=== PATIENT | female | born 1985 | race Caucasian/White ===

== ENCOUNTER 2017-04-16 16:22 | Outpatient (CLI) | payer BC ==
--- NOTE | 2017-04-16 17:02 | Non Stress Test Report ---
Non Stress Test Datetime Report Generated by CPN: 04/16/2017 17:01 DEMOGRAPHIC EGA NST: 35.5 INDICATION Indication for Study: Ordered by Provider Indication for Study (NST) Other: GDM MONITORING Monitor Explained: Monitor Explained; Test Explained; Patient Verbalized Understanding Time on Monitor: 04/16/2017 16:39 Time off Monitor: 04/16/2017 16:59 NST Duration: 20 NST INTERVENTIONS NST Interventions: PO Hydration; Reposition Patient Physician Notified NST: Lyle BABY A: [id number] BABY A Movement : Present Contraction Frequency : 0 FHR Baseline : 140 Accelerations : 15X15 Decelerations : None Variability : Moderate 6-25bpm NST Review: Meets Criteria for Reactive NST NST Review and Verified By : Gianna Camp RNC NST Results: Reactive NST REPORT Report Trigger: Send Report
== END 2017-04-16 17:02 | disposition home or self-care (01) ==
LOC: LC 16:22
PROVIDERS: ATTEND Student in an Organized Health Care Education/Training Program
PROC: 4A1HXCZ Monitoring of Products of Conception, Cardiac Rate, External Approach (ICD-10-PCS; principal; 2017-04-16)
DX: O24.419 Gestational diabetes mellitus in pregnancy, unspecified control (principal); Z3A.35 35 weeks gestation of pregnancy
CPT/HCPCS: 59025

== ENCOUNTER 2017-05-10 06:10 | Inpatient (IN) | payer BC, OTHER ==
[2017-05-08 12:26] LABS: ABSOLUTE LYMPHOCYTES (AUTO) 1.8 10^3/uL (0.5-4.7); ABSOLUTE MONOCYTES (AUTO) 0.5 10^3/uL (0.1-1.4); ABSOLUTE NEUT (AUTO) 9.3 10^3/uL (1.7-8.2); BASOPHILS % (AUTO) 0.2 % (0-2); EOSINOPHILS % (AUTO) 0.3 % (0-6); HEMATOCRIT 38.2 % (36.0-47.0); HEMOGLOBIN 12.6 g/dL (12.0-15.5); LYMPHOCYTES % (AUTO) 15.2 % (13-45); MEAN CORPUSCULAR HEMOGLOBIN 28.2 pg (27.0-33.4); MEAN CORPUSCULAR VOLUME 85 fl (80-97); PLATELET COUNT 256 10^3/uL (150-450); RED BLOOD COUNT 4.48 10^6/uL (3.72-5.28); RED CELL DISTRIBUTION WIDTH 15.8 % (11.5-14.0); SEGMENTED NEUTROPHILS % (AUTO) 80.3 % (42-78); TOTAL CELLS COUNTED % (AUTO) 100 %; WHITE BLOOD COUNT 11.5 10^3/uL (4.0-10.5)
[2017-05-08 12:29] LABS: APPEARANCE,URINE SLIGHTLY-CLOUDY; BILIRUBIN,URINE NEGATIVE (NEGATIVE); COLOR,URINE YELLOW; GLUCOSE, URINE NEGATIVE (NEGATIVE); KETONES,URINE NEGATIVE (NEGATIVE); LEUKOCYTE ESTERASE,URINE MODERATE (NEGATIVE); NITRITE,URINE NEGATIVE (NEGATIVE); PROTEIN,URINE NEGATIVE (NEGATIVE); URINE SPECIFIC GRAVITY 1.009; UROBILINOGEN,URINE NEGATIVE mg/dL (<2.0)
[2017-05-08 12:51] LABS: URINE AMPHETAMINES SCREEN NEGATIVE; URINE BARBITURATES SCREEN NEGATIVE; URINE BENZODIAZEPINES SCREEN NEGATIVE; URINE COCAINE SCREEN NEGATIVE; URINE MARIJUANA (THC) SCREEN NEGATIVE; URINE METHADONE SCREEN NEGATIVE; URINE PHENCYCLIDINE SCREEN NEGATIVE
[~2017-05-10 06:10] MED LIST: LACTATED RINGERS 1000 ML IV PRN; LIDOCAINE 0.5% INJ-PF (5 MG/ML) 50 ML SDV SUBCUT PRN
[2017-05-10] MEDS: RINGERS SOLUTION,LACTATED 1,000 ML IV SCH ×2 (08:00→22:12)
[2017-05-10] MEDS ORDERED: FENTANYL CITRATE INJ/PF 100 MCG/2 ML AMPUL IV PRN (08:03)
[2017-05-10] MEDS ORDERED: OXYTOCIN/NORMAL SALINE 20 UNIT/1,000 ML RTUINJ INJ PRN (08:06)
[2017-05-10] MEDS ORDERED: CEFAZOLIN 1 GM/D5W RTU 1 GM/50 ML RTUPB IV PRN (08:16)
[2017-05-10] MEDS ORDERED: OXYCODONE-ACETAMINOPHEN 5-325 MG TABLET PO PRN ×3 (08:30→10:24)
[2017-05-10] MEDS ORDERED: PROMETHAZINE HCL INJ 25 MG/1 ML VIAL IM PRN (08:30)
[2017-05-10] MEDS ORDERED: SIMETHICONE 80 MG TAB.CHEW PO PRN (08:30)
[2017-05-10] MEDS ORDERED: MEASLES,MUMPS&RUBELLA VACC/PF 0.5 ML VIAL SUBCUT PRN (08:30)
[2017-05-10] MEDS ORDERED: ACETAMINOPHEN 325 MG TABLET PO PRN (08:30)
[2017-05-10] MEDS ORDERED: DIPH/PERTUSS(ACELL)/TETANUS VAC/PF 0.5 ML SYR (>=10YO) IM PRN (08:30)
[2017-05-10] MEDS: PRENATAL VITAMIN W DHA CAPSULE PO SCH (10:04)
[2017-05-10] MEDS: DOCUSATE SODIUM 100 MG CAPSULE PO SCH ×2 (10:04→17:36)
[2017-05-10] MEDS ORDERED: PROMETHAZINE HCL INJ 25 MG/1 ML VIAL IV PRN ×2 (10:24)
[2017-05-10] MEDS ORDERED: DIPHENHYDRAMINE HCL 50 MG/ML VIAL IV PRN (10:24)
[2017-05-10] MEDS ORDERED: MEPERIDINE HCL/PF INJ 25 MG/1 ML DISP.SYRIN IV PRN (10:24)
[2017-05-10] MEDS ORDERED: KETOROLAC TROMETHAMINE INJ/PF 30 MG/1 ML SDV ONE (11:38)
[2017-05-10] MEDS ORDERED: ACETAMINOPHEN 100 ML IV ONE (11:38)
[2017-05-10] MEDS ORDERED: OXYTOCIN/NORMAL SALINE 20 UNIT/1,000 ML RTUINJ ONE (11:38)
[2017-05-10] MEDS: ACETAMINOPHEN 100 ML IV SCH ×2 (11:53→22:12)
[2017-05-10] MEDS ORDERED: FENTANYL CITRATE INJ/PF 100 MCG/2 ML AMPUL ONE (12:40)
--- NOTE | 2017-05-10 12:49 | OPERATIVE REPORT E ---
Operative Report NAME: AYE YANEZ : 1985 AGE: 32Y DATE OF SURGERY: 05/10/2017 ROOM: 221 PREOPERATIVE DIAGNOSES: 1. IUP at 39 weeks and 0 days. 2. Previous x2. POSTOPERATIVE DIAGNOSES: 1. IUP at 39 weeks and 0 days. 2. Previous x2. SURGEON: ROSELIA ROBBINS M.D. ANESTHESIA: Dr. Ricks with a spinal. STAFF WEAPONS OFFICER: Gabrielle Mercedes, Belt Molder Substation Engineer FINDINGS: A male infant in transverse lie with Apgars of 9 and 9. COMPLICATIONS: None. ESTIMATED BLOOD LOSS: 600 mL. SPECIMENS REMOVED: None. PROCEDURE: A low transverse hysterotomy section repeat. PROCEDURE IN DETAIL: The patient was taken to the operating room and prepared and draped in a normal sterile fashion in the supine position with a leftward tilt. A transverse skin incision was made with the scalpel and carried through to the underlying layer of fascia. With the same scalpel, the fascia was excised in the midline and extended laterally with Reyes's. The fascia was then dissected from the rectus muscle sharply with Reyes's and the peritoneal cavity was entered bluntly. With good visualization of the bladder and the uterus, the bladder blade was inserted. The hysterotomy was nicked with the scalpel and extended laterally with surgeon finger fracture. The infant was then delivered atraumatically. The nose and mouth were suctioned with a suction bulb and the cord was clamped and cut and the infant was handed off to awaiting top precipitator operator. Cord blood was collected. Placenta was removed manually. Uterus was exteriorized, cleared of clots and debris, and the hysterotomy was closed with 0 Monocryl in a running, locked fashion and a second layer of the same suture was used to imbricate to ensure hemostasis. The uterus was then returned to the abdomen and the peritoneal cavity was cleared of clots and debris. The rectus muscle and peritoneum were reapproximated with a mattress stitch of 2-0 Chromic. The fascia was closed with 0 Vicryl. The subcutaneous layer was closed with plain catgut and the skin was closed with 4-0 Vicryl. The patient tolerated the procedure well. Sponge, lap, and needle counts correct x2, and the patient was taken to recovery in stable condition. DICTATING PHYSICIAN: ROSELIA ROBBINS M.D. [id number] PHY#: [id number] ID: [id number] JOB#: [id number] ACCT: [id number] cc:ROSELIA ROBBINS M.D. > [facility]
[2017-05-10] MEDS ORDERED: KETOROLAC TROMETHAMINE INJ/PF 30 MG/1 ML SDV IV SCH (14:00)
[2017-05-10] MEDS ORDERED: RINGERS SOLUTION,LACTATED 2,000 ML IV ONE (14:00)
[2017-05-10] MEDS: OXYCODONE-ACETAMINOPHEN 5-325 MG TABLET PO PRN (14:19)
[2017-05-10] MEDS: KETOROLAC TROMETHAMINE INJ/PF 30 MG/1 ML SDV IV SCH (20:19)
[2017-05-11] MEDS: OXYCODONE-ACETAMINOPHEN 5-325 MG TABLET PO PRN ×4 (02:08→21:48)
[2017-05-11] MEDS: KETOROLAC TROMETHAMINE INJ/PF 30 MG/1 ML SDV IV SCH ×2 (04:14→11:24)
[2017-05-11 07:00] LABS: HEMATOCRIT 33.9 % (36.0-47.0); HEMOGLOBIN 11.3 g/dL (12.0-15.5); MEAN CORPUSCULAR HEMOGLOBIN 28.5 pg (27.0-33.4); MEAN CORPUSCULAR HGB CONC 33.5 g/dL (32.0-36.0); MEAN CORPUSCULAR VOLUME 85 fl (80-97); PLATELET COUNT 211 10^3/uL (150-450); RED BLOOD COUNT 3.98 10^6/uL (3.72-5.28); RED CELL DISTRIBUTION WIDTH 15.8 % (11.5-14.0); WHITE BLOOD COUNT 9.8 10^3/uL (4.0-10.5)
[2017-05-11] MEDS: DOCUSATE SODIUM 100 MG CAPSULE PO SCH ×2 (09:37→17:11)
[2017-05-11] MEDS: PRENATAL VITAMIN W DHA CAPSULE PO SCH (09:37)
--- NOTE | 2017-05-11 11:00 | PDOC PROGRESS REPORT ---
Subjective-OB Progress Note for:: 05/11/17 Subjective: day X1 s/p r c/s Doing well, passing gas, ambulating, tolerating diet, lochia is stable, voiding without difficulty. Bonding with baby well. Physical Exam (OB) Vital Signs: Temp Pulse Resp BP Pulse Ox 98.1 F 77 16 105/65 98 05/11/17 08:04 05/11/17 08:04 05/11/17 08:04 05/11/17 08:04 05/11/17 08:04 Intake & Output 05/10/17 05/11/17 05/12/17 06:59 06:59 06:59 Intake Total 1650 Output Total 2650 Balance -1000 Weight 107.501 kg - Dressing Removed: No Incision: Well Approximated Closure Type: op site - Lochia Lochia Amount: Small 10-25 ml Lochia Color: Rubra/Red - Abdomen Description: Tender, Soft, Round Hernia Present: No Fundal Description: Firm, Midline Fundal Height: u/u - u/2 Objective-Diagnostic Laboratory: 05/11/17 06:33 05/11/17 06:33 WBC 9.8 RBC 3.98 Hgb 11.3 L Hct 33.9 L MCV 85 MCH 28.5 MCHC 33.5 RDW 15.8 H Plt Count 211 Assessment and Plan(PN) - Assessment and Plan (1) delivery delivered Is this a current diagnosis for this admission?: Yes Plan: routine post op care - Time Spent with Patient Time with patient: Less than 15 minutes Critical Time spent with patient: Less than 15 minutes Medications reviewed and adjusted accordingly: Yes - Disposition Anticipated Discharge: Home Within: within 24 hours
[2017-05-11] MEDS: IBUPROFEN 800 MG TABLET PO SCH ×3 (12:22→23:51)
[2017-05-12] MEDS: IBUPROFEN 800 MG TABLET PO SCH (05:18)
--- NOTE | 2017-05-12 08:51 | PDOC DISCHARGE SUMMARY ---
Final Diagnosis Discharge Date: 05/12/17 - Final Diagnosis (1) delivery delivered Is this a current diagnosis for this admission?: Yes Discharge Data - Discharge Medication Prescriptions: Oxycodone HCl/Acetaminophen [Percocet 5-325 mg Tablet] 2 tab PO Q4HP PRN #60 tablet PRN Reason: Docusate Sodium [Colace 100 mg Capsule] 100 mg PO BID #60 capsule Ibuprofen [Motrin 800 mg Tablet] 800 mg PO Q6 #60 tablet Home Medications: Prenat 115/Iron Fum/Folic/Dss [ 19 Tablet] 1 tab PO DAILY 02/22/14 Docusate Sodium [Colace 100 mg Capsule] 100 mg PO BID #60 capsule 05/12/17 Ibuprofen [Motrin 800 mg Tablet] 800 mg PO Q6 #60 tablet 05/12/17 Oxycodone HCl/Acetaminophen [Percocet 5-325 mg Tablet] 2 tab PO Q4HP PRN #60 tablet 05/12/17 Gestational Age: 39.0 Reason(s) for Admission: Ceasarean Section-Repeat Procedures: NST Intrapartum Procedure(s): : Low Cervical, Transverse - [place] Data Baby 1 Male at 1 minute: 9 at 5 minutes: 9 Home with Mother: Yes Complications: No - Diagnosis Test Laboratory: Temp Pulse Resp BP Pulse Ox 98.1 F 66 16 119/69 100 05/12/17 07:38 05/12/17 07:38 05/12/17 07:38 05/12/17 07:38 05/12/17 07:38 05/08/17 05/08/17 05/11/17 09:53 11:53 06:33 RBC 4.48 3.98 Hgb 12.6 11.3 L Hct 38.2 33.9 L Urine Opiates Screen NEGATIVE - Discharge information/Instructions Discharge Activity: Activity As Tolerated, No Driving, No Lifting Over 10 Pounds , Pelvic Rest, No tub bath Discharge Diet: Regular Disposition: HOME, SELF-CARE Follow up with: [facility] in: 1, Weeks
[2017-05-12 09:02] VITALS: BP 100/70
[2017-05-12] MEDS: DOCUSATE SODIUM 100 MG CAPSULE PO SCH (09:13)
[2017-05-12] MEDS: PRENATAL VITAMIN W DHA CAPSULE PO SCH (09:14)
[2017-05-12] MEDS: OXYCODONE-ACETAMINOPHEN 5-325 MG TABLET PO PRN (09:16)
== END 2017-05-12 10:02 | disposition home or self-care (01) | DRG 766 ==
LOC: 2S 06:10
PROVIDERS: ADMIT Student in an Organized Health Care Education/Training Program; ATTEND Student in an Organized Health Care Education/Training Program
PROC: 4A1HXCZ Monitoring of Products of Conception, Cardiac Rate, External Approach (ICD-10-PCS; 2017-05-10)
PROC: 10D00Z1 Extraction of Products of Conception, Low, Open Approach (ICD-10-PCS; principal; 2017-05-10 09:15)
DX: O34.211 Maternal care for low transverse scar from previous cesarean delivery (principal); O24.415 Gestational diabetes mellitus in pregnancy, controlled by oral hypoglycemic drugs; Z79.899 Other long term (current) drug therapy; Z87.891 Personal history of nicotine dependence; Z83.3 Family history of diabetes mellitus; Z82.49 Family history of ischemic heart disease and other diseases of the circulatory system
CPT/HCPCS: 1961; 36415; 59025; 80307; 81001; 82962; 85025; 85027; 86850; 86900; 86901; 94799; J0131; J1885; J2590; J3010; J3490; J7120

== ENCOUNTER 2019-11-04 07:14 | Inpatient (IN) | payer BC, MEDICAID ==
[2019-10-30 09:04] LABS: ABSOLUTE LYMPHOCYTES (AUTO) 1.2 10^3/uL (0.5-4.7); ABSOLUTE MONOCYTES (AUTO) 0.3 10^3/uL (0.1-1.4); ABSOLUTE NEUT (AUTO) 6.2 10^3/uL (1.7-8.2); BASOPHILS % (AUTO) 0.3 % (0-2); EOSINOPHILS % (AUTO) 0.6 % (0-6); HEMATOCRIT 36.5 % (36.0-47.0); HEMOGLOBIN 12.6 g/dL (12.0-15.5); LYMPHOCYTES % (AUTO) 15.8 % (13-45); MEAN CORPUSCULAR HEMOGLOBIN 30.2 pg (27.0-33.4); MEAN CORPUSCULAR HGB CONC 34.5 g/dL (32.0-36.0); MEAN CORPUSCULAR VOLUME 88 fl (80-97); MONOCYTES % (AUTO) 3.4 % (3-13); PLATELET COUNT 197 10^3/uL (150-450); RED BLOOD COUNT 4.17 10^6/uL (3.72-5.28); RED CELL DISTRIBUTION WIDTH 15.4 % (11.5-14.0); SEGMENTED NEUTROPHILS % (AUTO) 79.9 % (42-78); TOTAL CELLS COUNTED % (AUTO) 100 %; WHITE BLOOD COUNT 7.8 10^3/uL (4.0-10.5)
[2019-10-30 09:23] LABS: APPEARANCE,URINE CLEAR; BILIRUBIN,URINE NEGATIVE (NEGATIVE); COLOR,URINE YELLOW; GLUCOSE, URINE NEGATIVE (NEGATIVE); KETONES,URINE NEGATIVE (NEGATIVE); LEUKOCYTE ESTERASE,URINE SMALL (NEGATIVE); NITRITE,URINE NEGATIVE (NEGATIVE); PROTEIN,URINE NEGATIVE (NEGATIVE); URINE SPECIFIC GRAVITY 1.006; UROBILINOGEN,URINE NEGATIVE mg/dL (<2.0)
[2019-10-30 09:55] LABS: URINE AMPHETAMINES SCREEN NEGATIVE; URINE BARBITURATES SCREEN NEGATIVE; URINE BENZODIAZEPINES SCREEN NEGATIVE; URINE COCAINE SCREEN NEGATIVE; URINE MARIJUANA (THC) SCREEN NEGATIVE; URINE METHADONE SCREEN NEGATIVE; URINE PHENCYCLIDINE SCREEN NEGATIVE
[~2019-11-04 07:14] MED LIST changes: +CEFAZOLIN 2 GM/D5W RTU 2 GM/50 ML RTUPB IV PRN; -LACTATED RINGERS 1000 ML IV PRN; +RINGERS SOLUTION,LACTATED 1,000 ML IV PRN; +RINGERS SOLUTION,LACTATED 2,000 ML IV PRN
[2019-11-04] MEDS ORDERED: OXYTOCIN/NORMAL SALINE 500 ML IV PRN (10:21)
[2019-11-04] MEDS ORDERED: OXYCODONE-ACETAMINOPHEN 5-325 MG TABLET PO PRN ×3 (10:30→14:03)
[2019-11-04] MEDS ORDERED: MEASLES,MUMPS&RUBELLA VACC/PF 0.5 ML VIAL SUBCUT PRN ×2 (10:30→14:03)
[2019-11-04] MEDS ORDERED: HYDROMORPHONE HCL INJ/PF 2 MG/ML AMPULE IV PRN (10:30)
[2019-11-04] MEDS ORDERED: PROMETHAZINE HCL INJ 25 MG/1 ML VIAL IM PRN (10:30)
[2019-11-04] MEDS ORDERED: DIPH/PERTUSS(ACELL)/TETANUS VAC/PF 0.5 ML SYR (>=10YO) IM PRN ×2 (10:30→14:03)
[2019-11-04] MEDS ORDERED: SIMETHICONE 80 MG TAB.CHEW PO PRN ×2 (10:30→14:03)
[2019-11-04] MEDS ORDERED: ACETAMINOPHEN 325 MG TABLET PO PRN ×2 (10:30→14:03)
[2019-11-04] MEDS ORDERED: RINGERS SOLUTION,LACTATED 1,000 ML IV SCH (10:30)
[2019-11-04] MEDS ORDERED: KETOROLAC TROMETHAMINE INJ/PF 30 MG/1 ML SDV ONE (11:04)
[2019-11-04] MEDS ORDERED: OXYTOCIN 10 UNIT/ML VIAL ONE (11:04)
[2019-11-04] MEDS ORDERED: ONDANSETRON HCL INJ/PF 4 MG/2 ML SDV ONE (11:04)
[2019-11-04] MEDS ORDERED: GLYCOPYRROLATE INJ 0.4 MG/2 ML VIAL ONE (11:04)
[2019-11-04] MEDS ORDERED: FENTANYL CITRATE INJ/PF 100 MCG/2 ML AMPUL ONE (11:04)
[2019-11-04] MEDS ORDERED: ACETAMINOPHEN 1,000 MG/100 ML RTUPB IV ONE (11:04)
[2019-11-04] MEDS ORDERED: OXYTOCIN/0.9 % SODIUM CHLORIDE 30 UNIT/500 ML RTUINJ ONE (11:05)
[2019-11-04] MEDS ORDERED: DIPHENHYDRAMINE HCL 50 MG/ML VIAL IV PRN (11:48)
[2019-11-04] MEDS ORDERED: MORPHINE SULFATE 10 MG/ML INJ IV PRN (11:48)
[2019-11-04] MEDS ORDERED: MEPERIDINE HCL/PF INJ 25 MG/1 ML DISP.SYRIN IV PRN (11:48)
[2019-11-04] MEDS ORDERED: FENTANYL CITRATE INJ/PF 100 MCG/2 ML AMPUL IV PRN ×3 (11:48)
[2019-11-04] MEDS ORDERED: PROMETHAZINE HCL INJ 25 MG/1 ML VIAL IV PRN ×2 (11:48→14:03)
[2019-11-04] MEDS ORDERED: IBUPROFEN 800 MG TABLET PO SCH (12:00)
--- NOTE | 2019-11-04 13:14 | Warning Signs in Babies ---
VOD Warning Signs Datetime Report Generated by [facility]: 11/04/2019 13:14 VOD#608 -Warning Signs in Babies: Needs to be viewed. (11/04/2019 10:44:Adam Patton RN)
[2019-11-04] MEDS ORDERED: OXYTOCIN/0.9 % SODIUM CHLORIDE 30 UNIT/500 ML RTUINJ IV PRN (14:03)
[2019-11-04] MEDS ORDERED: MORPHINE SULFATE 10 MG/ML INJ IM PRN (14:03)
[2019-11-04] MEDS ORDERED: RINGERS SOLUTION,LACTATED 1,000 ML IV PRN (14:03)
[2019-11-04] MEDS ORDERED: ACETAMINOPHEN 1,000 MG/100 ML RTUPB IV PRN (14:03)
[2019-11-04] MEDS ORDERED: KETOROLAC TROMETHAMINE INJ/PF 30 MG/1 ML SDV IV SCH (14:15)
--- NOTE | 2019-11-04 14:17 | PDOC DELIVERY SUMMARY ---
Delivery Summary - Maternal Hx : V Hx Para: III MALLIKA: 11/08/19 Risk Factors: Previous , Gestational Diabetes Fluids: Clear - Delivery Presentation: Vertex - Head transverse with occiput materal right. Right hand at face Heart Rate Monitoring: Externally Support Person Present: Yes Location: OR : Scheduled, Repeat Placenta: Within Normal Limits Number of Vessels (Cord): 3 Nuchal Cord: No Estimated Blood Loss: 750 - Medications Type of Anesthesia:: Spinal - Delivery Personnel RN: RO GARCIA MD: VICKIE CRESPO
[2019-11-04] MEDS ORDERED: MORPHINE SULFATE 10 MG/ML INJ ONE (14:26)
[2019-11-04] MEDS ORDERED: HYDROMORPHONE HCL INJ/PF 2 MG/ML AMPULE ONE (15:03)
[2019-11-04] MEDS: HYDROMORPHONE HCL INJ/PF 2 MG/ML AMPULE IV PRN ×2 (15:06→19:57)
[2019-11-04] MEDS: DOCUSATE SODIUM 100 MG CAPSULE PO SCH (17:51)
[2019-11-04] MEDS ORDERED: CEFAZOLIN 1 GM/D5W RTU 1 GM/50 ML RTUPB IV SCH (18:00)
[2019-11-04] MEDS ORDERED: DOCUSATE SODIUM 100 MG CAPSULE PO SCH (18:00)
[2019-11-04] MEDS: KETOROLAC TROMETHAMINE INJ/PF 30 MG/1 ML SDV IV SCH (21:23)
[2019-11-05] MEDS: OXYCODONE-ACETAMINOPHEN 5-325 MG TABLET PO PRN ×4 (00:27→19:56)
[2019-11-05] MEDS: KETOROLAC TROMETHAMINE INJ/PF 30 MG/1 ML SDV IV SCH (05:19)
[2019-11-05] MEDS ORDERED: IBUPROFEN 800 MG TABLET PO SCH (06:00)
[2019-11-05 07:00] LABS: HEMATOCRIT 31.8 % (36.0-47.0); MEAN CORPUSCULAR HEMOGLOBIN 30.8 pg (27.0-33.4); MEAN CORPUSCULAR HGB CONC 34.6 g/dL (32.0-36.0); MEAN CORPUSCULAR VOLUME 89 fl (80-97); PLATELET COUNT 185 10^3/uL (150-450); RED BLOOD COUNT 3.57 10^6/uL (3.72-5.28); RED CELL DISTRIBUTION WIDTH 15.3 % (11.5-14.0); WHITE BLOOD COUNT 8.5 10^3/uL (4.0-10.5)
[2019-11-05] MEDS: IBUPROFEN 800 MG TABLET PO SCH ×3 (09:31→21:38)
[2019-11-05] MEDS ORDERED: PRENATAL VITAMIN W DHA CAPSULE PO SCH (10:00)
[2019-11-05] MEDS: PRENATAL VITAMIN W DHA CAPSULE PO SCH (10:42)
[2019-11-05] MEDS: DOCUSATE SODIUM 100 MG CAPSULE PO SCH ×2 (10:42→17:33)
--- NOTE | 2019-11-05 11:54 | PDOC PROGRESS REPORT ---
Subjective-OB Progress Note for:: 11/05/19 Subjective: Pt doing well, no concerns. Ambulatory, she reports light bleeding, reg diet and voiding w/o difficulty. Physical Exam (OB) Vital Signs: Temp Pulse Resp BP Pulse Ox 98.4 F 75 18 100/57 L 98 11/05/19 07:47 11/05/19 07:47 11/05/19 07:47 11/05/19 07:47 11/05/19 07:47 Intake & Output 11/04/19 11/05/19 11/06/19 06:59 06:59 06:59 Intake Total 1680 Output Total 900 Balance 780 Weight 111.13 kg - PIH/Pre-Eclampsia Clonus: Negative Headache: Absent Epigastric Pain: No Visual Changes: No - Dressing Removed: No Incision: Well Approximated Closure Type: Surgical Glue - Maternal Morbidity 59. Maternal Morbidity (serious complications experinced by the mother associated with labor and delivery: None of the above - Lochia Lochia Amount: Scant < 10 ml Lochia Color: Rubra/Red - Abdomen Description: Soft, Round Hernia Present: No Fundal Description: Firm, Midline Fundal Height: u/u - u/2 Objective-Diagnostic Laboratory: 11/05/19 06:22 11/05/19 06:22 WBC 8.5 RBC 3.57 L Hgb 11.0 L Hct 31.8 L MCV 89 MCH 30.8 MCHC 34.6 RDW 15.3 H Plt Count 185 Assessment and Plan(PN) - Assessment and Plan (1) S/P repeat low transverse Is this a current diagnosis for this admission?: Yes (2) delivery delivered Is this a current diagnosis for this admission?: Yes (3) GDM, class A2 Is this a current diagnosis for this admission?: Yes - Time Spent with Patient Time with patient: Less than 15 minutes Medications reviewed and adjusted accordingly: Yes - Disposition Anticipated Discharge Disposition: Home, Self Care Anticipated Discharge Timeframe: within 24 hours
[2019-11-06] MEDS: OXYCODONE-ACETAMINOPHEN 5-325 MG TABLET PO PRN ×2 (04:14→10:35)
[2019-11-06] MEDS: IBUPROFEN 800 MG TABLET PO SCH (05:35)
--- NOTE | 2019-11-06 09:03 | PDOC PROGRESS REPORT ---
Subjective-OB Progress Note for:: 11/06/19 Subjective: Doing well, ready to go home, holding baby, , pain under control, passing gas, eating and voiding Physical Exam (OB) Vital Signs: Temp Pulse Resp BP Pulse Ox 97.7 F 67 18 110/55 L 100 11/06/19 08:00 11/06/19 08:00 11/06/19 08:00 11/06/19 08:00 11/06/19 08:00 Intake & Output 11/05/19 11/06/19 11/07/19 06:59 06:59 06:59 Intake Total 1680 2720 Output Total 900 Balance 780 2720 Weight 111.13 kg 110.3 kg - PIH/Pre-Eclampsia DTR's: 1 + Clonus: Negative Headache: Absent Epigastric Pain: No Visual Changes: No - Dressing Removed: Yes Incision: Open Closure Type: Sutures - Maternal Morbidity 59. Maternal Morbidity (serious complications experinced by the mother associated with labor and delivery: None of the above - Lochia Lochia Amount: Scant < 10 ml Lochia Color: Rubra/Red - Abdomen Description: Firm, Soft Hernia Present: No Fundal Description: Firm, Midline Fundal Height: u/u - u/2 Objective-Diagnostic Laboratory: 11/05/19 06:22 Assessment and Plan(PN) - Assessment and Plan (1) S/P repeat low transverse Is this a current diagnosis for this admission?: Yes (2) GDM, class A2 Is this a current diagnosis for this admission?: Yes (3) delivery delivered Is this a current diagnosis for this admission?: Yes - Time Spent with Patient Time with patient: Less than 15 minutes Medications reviewed and adjusted accordingly: Yes - Disposition Anticipated Discharge Disposition: Home, Self Care Anticipated Discharge Timeframe: within 24 hours - rev S&S to report, had BTL, take BS 2 -3 x week
--- NOTE | 2019-11-06 09:11 | PDOC DISCHARGE SUMMARY ---
Impression - Admit/DC Date/PCP Admission Date/Primary Care Provider: 11/04/19 07:14 Discharge Date: 11/06/19 - Discharge Diagnosis (1) S/P repeat low transverse Is this a current diagnosis for this admission?: Yes (2) GDM, class A2 Is this a current diagnosis for this admission?: Yes (3) delivery delivered Is this a current diagnosis for this admission?: Yes - Additional Information Discharge Diet: As Tolerated, Regular Discharge Activity: Activity As Tolerated, No Lifting Over 10 Pounds, No Lifting/Push/Pulling, Pelvic Rest, No tub bath Referrals: BIPIN NERI MD [ACTIVE STAFF] - ([facility] 1 week) Prescriptions: Oxycodone HCl/Acetaminophen [Percocet 5-325 mg Tablet] 1 tab PO Q4HP PRN #20 tablet PRN Reason: Ibuprofen [Motrin 800 mg Tablet] 800 mg PO Q8 #30 tablet Home Medications: Prenat 115/Iron Fum/Folic/Dss [ 19 Tablet] 1 tab PO DAILY 02/22/14 Ibuprofen [Motrin 800 mg Tablet] 800 mg PO Q8 #30 tablet 11/06/19 Oxycodone HCl/Acetaminophen [Percocet 5-325 mg Tablet] 1 tab PO Q4HP PRN #20 tablet 11/06/19 HPI Gestational Age: 39.3 Reason(s) for Admission: Ceasarean Section-Repeat, Tubal Ligation, Gestional Diabetes Procedures: NST, Ultrasound Intrapartum Procedure(s): : Low Cervical, Transverse Hospital Course Hospital Course: routine post op, no complications 59. Maternal Morbidity (serious complications experinced by the mother associated with labor and delivery: None of the above Results Laboratory Results: WBC 8.5 10^3/uL (4.0-10.5) 11/05/19 06:22 RBC 3.57 10^6/uL (3.72-5.28) L 11/05/19 06:22 Hgb 11.0 g/dL (12.0-15.5) L 11/05/19 06:22 Hct 31.8 % (36.0-47.0) L 11/05/19 06:22 MCV 89 fl (80-97) 11/05/19 06:22 MCH 30.8 pg (27.0-33.4) 11/05/19 06:22 MCHC 34.6 g/dL (32.0-36.0) 11/05/19 06:22 RDW 15.3 % (11.5-14.0) H 11/05/19 06:22 Plt Count 185 10^3/uL (150-450) 11/05/19 06:22 Lymph % (Auto) 15.8 % (13-45) 10/30/19 08:21 [place] % (Auto) 3.4 % (3-13) 10/30/19 08:21 Eos % (Auto) 0.6 % (0-6) 10/30/19 08:21 Baso % (Auto) 0.3 % (0-2) 10/30/19 08:21 Absolute Neuts (auto) 6.2 10^3/uL (1.7-8.2) 10/30/19 08:21 Absolute Lymphs (auto) 1.2 10^3/uL (0.5-4.7) 10/30/19 08:21 Absolute Monos (auto) 0.3 10^3/uL (0.1-1.4) 10/30/19 08:21 Absolute Eos (auto) 0.0 10^3/uL (0.0-0.6) 10/30/19 08:21 Absolute Basos (auto) 0.0 10^3/uL (0.0-0.2) 10/30/19 08:21 Seg Neutrophils % 79.9 % (42-78) H 10/30/19 08:21 POC Glucose 69 mg/dL (70-110) L 11/04/19 09:10 Urine Color YELLOW 10/30/19 08:21 Urine Appearance CLEAR 10/30/19 08:21 Urine pH 7.0 (5.0-9.0) 10/30/19 08:21 Ur Specific [place] 1.006 10/30/19 08:21 Urine Protein NEGATIVE mg/dL (NEGATIVE) 10/30/19 08:21 Urine Glucose (UA) NEGATIVE mg/dL (NEGATIVE) 10/30/19 08:21 Urine Ketones NEGATIVE mg/dL (NEGATIVE) 10/30/19 08:21 Urine Blood NEGATIVE (NEGATIVE) 10/30/19 08:21 Urine Nitrite NEGATIVE (NEGATIVE) 10/30/19 08:21 Urine Bilirubin NEGATIVE (NEGATIVE) 10/30/19 08:21 Urine Urobilinogen NEGATIVE mg/dL (<2.0) 10/30/19 08:21 Ur Leukocyte Esterase SMALL (NEGATIVE) H 10/30/19 08:21 Urine WBC (Auto) 2 /HPF 10/30/19 08:21 Urine RBC (Auto) 1 /HPF 10/30/19 08:21 Urine Bacteria (Auto) TRACE /HPF 10/30/19 08:21 Squamous Epi Cells Auto 3 /HPF 10/30/19 08:21 Urine Mucus (Auto) RARE /LPF 10/30/19 08:21 Urine Ascorbic Acid NEGATIVE (NEGATIVE) 10/30/19 08:21 Urine Opiates Screen NEGATIVE 10/30/19 08:21 Urine Methadone Screen NEGATIVE 10/30/19 08:21 Ur Barbiturates Screen NEGATIVE 10/30/19 08:21 Ur Phencyclidine Scrn NEGATIVE 10/30/19 08:21 Ur Amphetamines Screen NEGATIVE 10/30/19 08:21 U Benzodiazepines Scrn NEGATIVE 10/30/19 08:21 Urine Cocaine Screen NEGATIVE 10/30/19 08:21 U Marijuana (THC) Screen NEGATIVE 10/30/19 08:21 COVID-19 Source NASOPHARYNGEAL 10/30/19 08:23 COVID-19 (DEISY) NOT DETECTED 10/30/19 08:23 Blood Type O POSITIVE 11/02/19 15:40 Antibody Screen NEGATIVE 11/02/19 15:40 Plan Health Concerns: incisional pain, infection, Plan of Treatment: discharge home, inspirometer, fluids, walk, rev S&S to report Goals: no complications Time Spent: Less than 30 Minutes
[2019-11-06] MEDS: DOCUSATE SODIUM 100 MG CAPSULE PO SCH (09:17)
[2019-11-06] MEDS: PRENATAL VITAMIN W DHA CAPSULE PO SCH (09:17)
[2019-11-06 12:14] VITALS: BP 125/67
--- NOTE | 2019-11-12 10:40 | Operative Report ---
Operative Report DATE OF SURGERY: 11/04/19 PREOPERATIVE DIAGNOSIS: Intrauterine @39 + weeks EGA. Prior CS x2. A2GDM. Unwanted fertility POSTOPERATIVE DIAGNOSIS: Same as above with adhesion of omentum iwth anterior abdominal wall. OPERATION: Repeat section. Bilateral tubal ligation SURGEON: VICKIE CRESPO ANESTHESIA: Spinal TISSUE REMOVED OR ALTERED: Placenta COMPLICATIONS: None ESTIMATED BLOOD LOSS: 750cc INTRAOPERATIVE FINDINGS: Adhesions between omentum and anterior abdominal wall, large amount clear amniotic fluid, normal appearing bilateral fallopian tubes and ovaries. Viable male infant. PROCEDURE: IV fluids: per anesthesia record Urinary output: 150 cc clear yellow urine Position: To recovery room in stable condition Description of procedure: The patient was taken to the operating room and spinal anesthesia was administered and found to be adequate. She was then placed on the OR table in the supine position with a slight leftward tilt. Patient was prepped and draped in usual sterile fashion. Ancef 2 gms was given IV prior to the procedure for i nfection prophylaxis. Timeout was taken. A Pfannenstiel skin incision was then made approximately 3 cm above the pubic symphysis and carried down to level the rectus fascia. The rectus fascia was then nicked in the midline with a scalpel and the fascial incision was extended laterally with use of curved Reyes scissors. The rectus fascia was then grasped with 2 Kocker clamps elevated and the underlying rectus muscle was dissected off both bluntly and sharply. Scar tissue noted as above. Any bleeding controlled with cautery. The rectus muscles were then split in the midline and the peritoneum was entered. The peritoneal incision was then extended by manually stretching the peritoneum. The bladder blade was positioned. Bladder flap created and bladder blade replaced. The bladder was noted to be out of harm's way. A scalpel was then used in the lower uterine for the hysterotomy, slowly until amniotomy was obtained a large amount of fluid was noted. The uterine incision was then manually stretched. The was noted to be in vertex postion but engaged in the pelvis. The head was delivered with minmal difficulty. The shoulders and the rest of the body followed immediately. The cord was cut clamped and the infant was handed off to the nurse awaiting. Infant was crying prior to hand off. The placenta was manually delivered. Using a lap gauze the uterus was cleared of all clots and debris. The uterus was then exteriorized and a bladder blade was repositioned. The uterine incision was then closed with 0 Chromic suture in a running locked fashion. A second layer of the same suture was used in a running locked imbricated fashion. The uterine incision was inspected and noted to be hemostatic. Retractor was removed. The posterior aspect of the uterus was then inspected and anatomy was seen as above. The right fallopian tube was identified and traced to the fimbriated end. A filshie clip was placed approximately 2 cm from the uterine cornu. Clip surrounded the tube in its entirety. Blanching noted and hemostasis. The left fallopian tube was identified and traced to the fimbriated end. A filshie clip was placed approximately 2 cm from the uterine cornu. Clip surrounded the tube in its entirety. Blanching noted and hemostasis. The uterus was returned to its normal anatomic position within the abdominal cavity. Warm saline irrigation was used to clear all clots and debris from the abdomen. The uterine incision was inspected once more and noted to remain hemostatic. The bladder blade was removed and the peritoneum was closed with 2-0 chromic in a running fashion. The rectus muscles were then reapproximated and the rectus fascia was closed with a #1 PDS in a running fashion. The subcutaneous tissue was then inspected and any bleeding was controlled with Bovie electrocautery. The subcutaneous tissue was then closed with 2-0 Plain Gut suture in a running fashion. The skin was then closed with 3-0 Monocryl in a running subcuticular fashion. The skin incision was then clean dried and Dermabond was applied over the skin incision. All instrument sponge and needle counts were correct x3 for the procedure the patient tolerated the procedure well. She will proceed to recovery room in stable condition
== END 2019-11-06 13:30 | disposition home or self-care (01) | DRG 785 ==
LOC: 2N 07:14
PROVIDERS: ADMIT Obstetrics & Gynecology; ATTEND Obstetrics & Gynecology
PROC: 10D00Z1 Extraction of Products of Conception, Low, Open Approach (ICD-10-PCS; principal; 2019-11-04)
PROC: 0UL70CZ Occlusion of Bilateral Fallopian Tubes with Extraluminal Device, Open Approach (ICD-10-PCS; 2019-11-04)
DX: O34.211 Maternal care for low transverse scar from previous cesarean delivery (principal); O24.429 Gestational diabetes mellitus in childbirth, unspecified control; Z3A.39 39 weeks gestation of pregnancy; N85.8 Other specified noninflammatory disorders of uterus; Z37.0 Single live birth; Z30.2 Encounter for sterilization
CPT/HCPCS: 1961; 36415; 59025; 80307; 81001; 82962; 85025; 85027; 86850; 86900; 86901; 87635; 90707; 94760; 94799; C9803; J0131; J0690; J1170; J1885; J2270; J2405; J2550; J2590; J3010; J3490; J7120